=== PATIENT | male | born 1960 | race Caucasian/White ===

== ENCOUNTER 2016-09-08 09:53 | Observation (INO) | payer OTHER ==
[~2016-09-08] VITALS: Ht 172.7 cm; Wt 82.3 kg
[~2016-09-08 09:53] MED LIST: ASPI81TA28 PO; ATOR-24 PO; CLOP1TAB15 PO; NTRGSL/4 UT
--- NOTE | 2016-09-08 10:22 | EMERGENCY ROOM VISIT NOTE ---
History Report prepared by Rod: Jluis Ramey Under the Supervision of: Dr. Marco Yadav M.D. First contact with patient: 10:02 Chief Complaint: CHEST PAIN Stated Complaint: CHEST PAINS, REFERED BY DOCTOR History of Present Illness The patient is a 56 year old male who presents to the Emergency Room with complaints of worsening chest pain that started 24 hours ago. He was sent here by Dr. Irlanda Payton. The patient had an LAD stent placed in November 2015, and since then, he has been getting periodic chest pain, but the pain has been worsening. The patient has been getting waves of dizziness, lightheadedness, and a bit of heart palpitations. Last night, the patient says he started getting chest pains that radiated into his left arm. The patient took Nitro last night, and that helped. He took his daily baby Aspirin this morning. Currently, he feels okay, but still has a bit of a "tooth ache" pain under his right arm, which he rates as a 3 out of 10 in severity. The patient denies any loss of consciousness, shortness of breath, fevers, headaches, or swelling to his legs. He is a non-smoker. His father of a massive heart attack. Source of History: patient, spouse/significant other Onset: 24 hours ago Position: chest Timing: worsening Modifying Factors (Relieving): other (Aspirin, Nitro) Associated Symptoms: No LOC, No SOB, No fevers, No headache Note: Associated symptoms: Waves of dizziness, lightheadedness, bit of heart palpitations. Pain radiates into left arm. Currently having a "tooth ache" pain under right arm. Review of Systems See HPI for pertinent positives & negatives. A total of 10 systems reviewed and were otherwise negative. Past Medical & Surgical Medical Problems: (1) Chest pain (2) Coronary artery disease Surgical Problems: (1) History of placement of stent in LAD coronary artery Family History Diabetes mellitus FHx: heart disease Social History Smoking Status: Never Smoker Alcohol Use: occasionally Marital Status: Housing Status: lives with family Occupation Status: employed Current/Historical Medications Scheduled Aspirin (Aspirin Ec), 81 MG PO DAILY Atorvastatin (Lipitor), 40 MG PO DAILY Clopidogrel (Plavix), 75 MG PO DAILY Coenzyme Q10 (Ubidecarenone) (Co Q-10), 100 MG PO QPM Isosorbide Mononitrate (Isosorbide Mononitrate ER), 30 MG PO QPM Nitroglycerin (Nitrostat), 0.4 MG UT PRN Pantoprazole (Protonix), 40 MG PO DAILY Allergies Coded Allergies: No Known Allergies (Unverified , 09/08/16) Physical Exam Vital Signs Date Time Temp Pulse Resp B/P Pulse Ox O2 Delivery O2 Flow Rate FiO2 09/08/16 12:12 61 16 132/77 97 Room Air 09/08/16 11:04 75 09/08/16 11:04 63 16 126/72 98 Room Air 09/08/16 10:06 37.0 80 18 142/84 96 Room Air Physical Exam GENERAL: Patient is well appearing and in no acute distress. HEENT: No acute trauma, normocephalic atraumatic, mucous membranes moist, no nasal congestion, no scleral icterus. NECK: No stridor, no adenopathy, no meningismus, trachea is midline. LUNGS: No dyspnea. Clear to auscultation and equal bilaterally. No wheeze, no rhonchi. HEART: Regular rate and rhythm. No murmurs, rubs, gallops appreciated. ABDOMEN: Soft, nontender, bowel sounds positive, no masses appreciated, no peritonitis. BACK: No midline tenderness, no CVA tenderness EXTREMITIES: Normal motion all extremities, no cyanosis, no edema. NEUROLOGIC: Alert and oriented, no acute motor or sensory deficits, no focal weakness, cranial nerves grossly intact. SKIN: No rash, no jaundice, no diaphoresis. Medical Decision & Procedures ER Provider Diagnostic Interpretation: X ray results are stated below per my interpretation and the radiologist's interpretation. CHEST ONE VIEW PORTABLE CLINICAL HISTORY: Chest pain. COMPARISON STUDY: No previous studies for comparison. FINDINGS: Lung volumes are normal. Lungs are clear. There is no pneumothorax or pleural effusion. There is no evidence of pulmonary edema. Cardiac size is normal. Mediastinal contours are normal. IMPRESSION: No acute cardiopulmonary findings. Electronically signed by: Pancho Freeman M.D. 09/08/2016 10:37 AM Dictated Date/Time: 09/08/2016 10:37 AM Laboratory Results 09/08/16 11:00 Red Blood Count 4.82, Mean Corpuscular Volume 89.6, Mean Corpuscular Hemoglobin 31.7, Mean Corpuscular Hemoglobin Concent 35.4, Mean Platelet Volume 11.0, Neutrophils (%) (Auto) 72.2, Lymphocytes (%) (Auto) 17.5, Monocytes (%) (Auto) 8.9, Eosinophils (%) (Auto) 1.0, Basophils (%) (Auto) 0.3, Neutrophils # (Auto) 5.27, Lymphocytes # (Auto) 1.28, Monocytes # (Auto) 0.65, Eosinophils # (Auto) 0.07, Basophils # (Auto) 0.02 09/08/16 11:00 Test 09/08/16 11:00 White Blood Count 7.30 K/uL (4.8-10.8) Red Blood Count 4.82 M/uL (4.7-6.1) Hemoglobin 15.3 g/dL (14.0-18.0) Hematocrit 43.2 % (42-52) Mean Corpuscular Volume 89.6 fL (80-100) Mean Corpuscular Hemoglobin 31.7 pg (25-34) Mean Corpuscular Hemoglobin Concent 35.4 g/dl (32-36) Platelet Count 211 K/uL (130-400) Mean Platelet Volume 11.0 fL (7.4-10.4) Neutrophils (%) (Auto) 72.2 % Lymphocytes (%) (Auto) 17.5 % Monocytes (%) (Auto) 8.9 % Eosinophils (%) (Auto) 1.0 % Basophils (%) (Auto) 0.3 % Neutrophils # (Auto) 5.27 K/uL (1.4-6.5) Lymphocytes # (Auto) 1.28 K/uL (1.2-3.4) Monocytes # (Auto) 0.65 K/uL (0.11-0.59) Eosinophils # (Auto) 0.07 K/uL (0-0.5) Basophils # (Auto) 0.02 K/uL (0-0.2) RDW Standard Deviation 38.9 fL (36.4-46.3) RDW Coefficient of Variation 12.1 % (11.5-14.5) Immature Granulocyte % (Auto) 0.1 % Immature Granulocyte # (Auto) 0.01 K/uL (0.00-0.02) Anion Gap 10.0 mmol/L (3-11) Est Creatinine Clear Calc Drug Dose 92.8 ml/min Estimated GFR () 107.3 Estimated GFR (Non- 92.6 BUN/Creatinine Ratio 20.4 (10-20) Calcium Level 9.0 mg/dl (8.5-10.1) Total Creatine Kinase 85 U/L (39-308) Creatine Kinase MB 1.2 ng/ml (0.5-3.6) Creatine Kinase MB Ratio 1.4 (0-3.0) Laboratory results as reviewed by me. ECG Indication: chest pain Rate (beats per minute): 62 Rhythm: normal sinus Findings: no acute ischemic change, no ectopy ED Course 1012: The patient was evaluated in room B7. A complete history and physical exam was performed. 1145: I reevaluated the patient and he is feeling okay. 1200: I discussed the patient with Dr. Mynor Payton scale and skip car operator - he will evaluate the patient for further treatment. 1202: I reevaluated the patient and he is resting comfortably. The patient verbally expressed understanding and agreement of the treatment plan. The patient will be evaluated for further treatment. Medical Decision Differential: Cardiac Ischemia (STEMI, NSTEMI, Unstable Angina, etc), Aortic Dissection, Arrhythmia, Pulmonary Embolism, Pneumonia, Pneumothorax, MSK, Infectious, Pericarditis/Myocarditis, Esophageal Rupture, Gastrointestinal, amongst other pathologies entertained. 56 yr old male arrives with complaint of chest pain over the last 24 hours on and off that relieves with SLNTG. Sent over by cards to be brought in for further evaluation. Initial EKG, trop and cxr clear. He is in no disress and looks well. He will be brought in to hospitalist service for further work-up and evaluation. 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 Consults Time Called: 1158 Consulting Physician: Dr. Mynor Payton scale and skip car operator Returned Call: 1200 I discussed the patient with Dr. Mynor Payton scale and skip car operator - he will evaluate the patient for further treatment. Impression Primary Impression: Left sided chest pain Additional Impression: Unstable angina Scribe Attestation The scribe's documentation has been prepared under my direction and personally reviewed by me in its entirety. I confirm that the note above accurately reflects all work, treatment, procedures, and medical decision making performed by me. Departure Information Dispostion Being Evaluated By Hospitalist Referrals Dilip Fournier DO (PCP) Patient Instructions [facility] Problem Qualifiers
[2016-09-08] MEDS ORDERED: IMDSR30 PO (10:39)
[2016-09-08] MEDS ORDERED: PANT40TA PO (10:39)
[2016-09-08] MEDS ORDERED: COEN100C3 PO (10:39)
--- NOTE | 2016-09-08 10:39 | DIAGNOSTIC IMAGING REPORT ---
CHEST ONE VIEW PORTABLE CLINICAL HISTORY: Chest pain. COMPARISON STUDY: No previous studies for comparison. FINDINGS: Lung volumes are normal. Lungs are clear. There is no pneumothorax or pleural effusion. There is no evidence of pulmonary edema. Cardiac size is normal. Mediastinal contours are normal. IMPRESSION: No acute cardiopulmonary findings. Electronically signed by: Pancho Freeman M.D. 09/08/2016 10:37 AM Dictated Date/Time: 09/08/2016 10:37 AM
[2016-09-08 11:34] LABS: BASO % 0.3 %; BASO ABS # 0.02 K/uL (0-0.2); COMPLETE YES; HEMATOCRIT 43.2 % (42-52); IG% 0.1 %; LYMPH % 17.5 %; LYMPH ABS # 1.28 K/uL (1.2-3.4); MEAN CELL VOLUME 89.6 fL (80-100); MEAN CORPUSCULAR HEMOGLOBIN 31.7 pg (25-34); MEAN CORPUSCULAR HGB CONC 35.4 g/dl (32-36); MONO % 8.9 %; NEUT % 72.2 %; PLATELET COUNT 211 K/uL (130-400); RED BLOOD COUNT 4.82 M/uL (4.7-6.1)
[2016-09-08 11:53] LABS: BLOOD UREA NITROGEN 19 mg/dl (7-18); BUN/CREATININE RATIO 20.4 (10-20); CARBON DIOXIDE 25 mmol/L (21-32); CHLORIDE 108 mmol/L (98-107); CREATININE 0.91 mg/dl (0.60-1.40); GLUCOSE 97 mg/dl (70-99); POTASSIUM 3.9 mmol/L (3.5-5.1); SODIUM 143 mmol/L (136-145)
[2016-09-08 11:57] LABS: CKMB/CK RATIO 1.4 (0-3.0)
[2016-09-08] MEDS ORDERED: MoRPHine SULFATE 2 MG/ML CARP IV PRN (12:30)
[2016-09-08] MEDS ORDERED: ONDANSETRON INJ 2 MG/ML 2 ML VIAL IV PRN (12:30)
[2016-09-08] MEDS ORDERED: NITROGLYCERIN 0.4 MG SL PER TAB CHARGE SL PRN (12:30)
[2016-09-08] MEDS ORDERED: ACETAMINOPHEN 325 MG TAB PO PRN (12:30)
[2016-09-08] MEDS ORDERED: IV FLUIDS COMPLETED PRN (13:45)
--- NOTE | 2016-09-08 14:02 | History and Physical ---
History & Physical Date & Time of Service: Sep 08, 2016 at 14:03 . Chief Complaint: chest pain . Primary Care Physician: History of Present Illness Source: patient, clinic records, hospital records 56 YO male followed by Dr. Chow for primary care and Dr. Fournier for Cardiology. History of CAD. Cath 11/30/15 demonstrated LAD lesion. 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 Intolerant of beta eugenio (weakness, diplopia). Has been managed with aspirin, clopidogrel, isosorbide, statin. Has had occasional mild chest pressure since PCI, usually nonexertional, relived by acetaminophen. 5 days prior to admission he had midsternal chest pressure radiating to his left arm while watching TV. No associated SOB, nausea, vomiting, diaphoresis. Took 2 doses of SL NTG with relief. Had similar episode last evening, again while watching TV, again relieved by NTG x 2. Seen in Cardiology clinic today. Referred to hospital for further evaluation. Chest pain-free in ED. . Past Medical/Surgical History Chronic Medical Problems: (1) Coronary artery disease Status: Chronic (2) Dyslipidemia Status: Chronic Surgical Problems: (1) Status post cardiac catheterization Status: Chronic (2) Status post coronary artery stent placement Permanent Comment[place] [facility] [place] Status: Chronic . Family History Diabetes mellitus FHx: heart disease Social History Smoking Status: Never Smoker Alcohol Use: occasionally Marital Status: Occupational Status: employed Allergies Coded Allergies: No Known Allergies (Unverified , 09/08/16) Home Medications Scheduled Aspirin (Aspirin Ec), 81 MG PO DAILY Atorvastatin (Lipitor), 40 MG PO DAILY Clopidogrel (Plavix), 75 MG PO DAILY Coenzyme Q10 (Ubidecarenone) (Co Q-10), 100 MG PO QPM Isosorbide Mononitrate (Isosorbide Mononitrate ER), 30 MG PO QPM Nitroglycerin (Nitrostat), 0.4 MG UT PRN Pantoprazole (Protonix), 40 MG PO DAILY Review of Systems Constitutional: + weight loss (intentional), No chills, No fever Eyes: + diplopia, No eye pain, No worsening of vision ENT: No dental problems, No hearing loss, No nasal symptoms Respiratory: No cough, No shortness of breath Cardiovascular: + problem reported (as noted in HPI) Abdomen: + GI bleeding, No diarrhea, No nausea, No pain, No vomiting Musculoskeletal: No joint pain, No muscle pain Genitourinary - Male: No dysuria, No hematuria Neurologic: + problem reported (no headaches) Endocrine: No excessive thirst, No excessive urination Hematologic / Lymphatic: + abnormal bleeding/bruising (bruises easily) Integumentary: No new/changing skin lesions, No rash Physical Exam Vital Signs Date Time Temp Pulse Resp B/P Pulse Ox O2 Delivery O2 Flow Rate FiO2 09/08/16 13:19 72 09/08/16 12:12 61 16 132/77 97 Room Air 09/08/16 11:04 75 09/08/16 11:04 63 16 126/72 98 Room Air 09/08/16 10:06 37.0 80 18 142/84 96 Room Air General Appearance: WD/WN, no apparent distress Head: normocephalic, atraumatic Eyes: normal inspection, PERRL, EOMI, sclerae normal ENT: normal ENT inspection, hearing grossly normal, pharynx normal Neck: supple, no adenopathy, thyroid normal, no JVD, trachea midline Respiratory/Chest: lungs clear, no respiratory distress, no accessory muscle use Cardiovascular: regular rate, rhythm, no edema, no gallop, no JVD, no murmur, normal peripheral pulses Abdomen/GI: normal bowel sounds, non tender, soft, no organomegaly Extremities/Musculoskelatal: normal inspection, no calf tenderness, normal capillary refill, no pedal edema 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, no motor/sensory deficits, alert, normal mood/affect, oriented x 3 Skin: normal color, warm/dry, no rash Lymphatic: no adenopathy Diagnostics Laboratory Results Results Past 24 Hours Test 09/08/16 11:00 Range/Units White Blood Count 7.30 4.8-10.8 K/uL Red Blood Count 4.82 4.7-6.1 M/uL Hemoglobin 15.3 14.0-18.0 g/dL Hematocrit 43.2 42-52 % Mean Corpuscular Volume 89.6 80-100 fL Mean Corpuscular Hemoglobin 31.7 25-34 pg Mean Corpuscular Hemoglobin Concent 35.4 32-36 g/dl Platelet Count 211 130-400 K/uL Mean Platelet Volume 11.0 7.4-10.4 fL Neutrophils (%) (Auto) 72.2 % Lymphocytes (%) (Auto) 17.5 % Monocytes (%) (Auto) 8.9 % Eosinophils (%) (Auto) 1.0 % Basophils (%) (Auto) 0.3 % Neutrophils # (Auto) 5.27 1.4-6.5 K/uL Lymphocytes # (Auto) 1.28 1.2-3.4 K/uL Monocytes # (Auto) 0.65 0.11-0.59 K/uL Eosinophils # (Auto) 0.07 0-0.5 K/uL Basophils # (Auto) 0.02 0-0.2 K/uL RDW Standard Deviation 38.9 36.4-46.3 fL RDW Coefficient of Variation 12.1 11.5-14.5 % Immature Granulocyte % (Auto) 0.1 % Immature Granulocyte # (Auto) 0.01 0.00-0.02 K/uL Sodium Level 143 136-145 mmol/L Potassium Level 3.9 3.5-5.1 mmol/L Chloride Level 108 98-107 mmol/L Carbon Dioxide Level 25 21-32 mmol/L Anion Gap 10.0 3-11 mmol/L Blood Urea Nitrogen 19 7-18 mg/dl Creatinine 0.91 0.60-1.40 mg/dl Est Creatinine Clear Calc Drug Dose 92.8 ml/min Estimated GFR () 107.3 Estimated GFR (Non- 92.6 BUN/Creatinine Ratio 20.4 10-20 Random Glucose 97 70-99 mg/dl Calcium Level 9.0 8.5-10.1 mg/dl Total Creatine Kinase 85 39-308 U/L Creatine Kinase MB 1.2 0.5-3.6 ng/ml Creatine Kinase MB Ratio 1.4 0-3.0 Troponin I < 0.015 0-0.045 ng/ml Diagnostic Radiology CHEST ONE VIEW PORTABLE FINDINGS: Lung volumes are normal. Lungs are clear. There is no pneumothorax or pleural effusion. There is no evidence of pulmonary edema. Cardiac size is normal. Mediastinal contours are normal. IMPRESSION: No acute cardiopulmonary findings. Electronically signed by: Pancho Freeman M.D. 09/08/2016 10:37 AM . EKG EKG performed at 10:01 reviewed and demonstrated NSR at 62 / minute, T-wave flattening aVF. . Impression Assessment and Plan CHEST PAIN / CAD History of coronary artery disease, s/p PCI LAD November 2015. 2 recent episodes of chest pain at rest, relieved by NTG. Check serial cardiac markers and EKG's. Continue aspirin, clopidogrel, isosorbide, atorvastatin. Consult Cardiology. DYSLIPIDEMIA Check lipid profile. Continue atorvastatin. VTE PROPHYLAXIS SQ enoxaparin. Ambulate. DISPOSITION Observation status on Telemetry Unit. Expected discharge to home. Medical follow-up with Dr. Tong. Cardiology follow-up with Dr. Fournier. . VTE Prophylaxis VTE Risk Assessment Done? Y/N: Yes Risk Level: Moderate Given or contraindicated: Enoxaparin (Lovenox)SQ
[2016-09-08 14:27] VITALS: BP 132/73; PULSE 63; TEMP 37; O2SAT 99; Ht 172.7 cm; Wt 82.3 kg
[2016-09-08 15:50] VITALS: BP 136/79; PULSE 88; TEMP 36.6; O2SAT 94
--- NOTE | 2016-09-08 16:59 | CARDIOLOGY CONSULTATION ---
DATE OF CONSULTATION: 09/08/2016 [facility] REASON FOR CONSULTATION: Chest pain. HISTORY OF PRESENT ILLNESS: The patient is a 56-year-old male patient whom I know from my clinic. In December of 2015, he had a drug-eluting stent placed in his LAD. He has done well and had an exercise stress test in December of 2015 that was negative for ischemia. Recently he has been experiencing some atypical chest pain. It is atypical and that it does not occur with activity. He describes it as a dull ache that radiates into his left arm. He has taken sublingual nitroglycerin for it and it has provided some but not complete relief. He describes an episode this past Sunday where he developed the discomfort that lasted for approximately 6 hours before it resolved. It was not associated to shortness of breath. 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 He also has been having some lightheadedness and dizziness, which is not necessarily associated to the chest discomfort. He has not had syncope. He denies heart palpitations, tachycardia. ALLERGIES: No known medical allergies. PAST MEDICAL HISTORY: As described above in November of 2015, he had a drug-eluting stent placed in the LAD. He has a history of dyslipidemia. No prior history of diabetes. He has an intolerance to beta blockers due to lightheadedness. SOCIAL HISTORY: He is a lifelong nonsmoker. He is and lives with his . FAMILY MEDICAL HISTORY: Significant for a brother with early coronary artery disease. REVIEW OF SYSTEMS: A 10-point review of systems is negative except for the history of chief complaint. PHYSICAL EXAMINATION: GENERAL: He is alert and oriented. VITAL SIGNS: Blood pressure is 130/70, pulse is regular at 70; he is afebrile. HEENT: He is normocephalic. Pupils are equal and reactive to light. Extraocular muscles are intact bilaterally. NECK: The neck veins are flat. Carotids have good upstrokes bilaterally without bruits. Thyroid is nonpalpable. RESPIRATORY: Breath sounds are equal bilaterally and clear to auscultation. CARDIOVASCULAR: Heart has a regular rhythm. Normal S1, S2. No S3, S4. No cardiac rubs or murmurs. GASTROINTESTINAL: Abdomen is soft, nontender without organomegaly. EXTREMITIES: Free of edema, digit clubbing, or cyanosis. NEUROLOGIC: Grossly intact. SKIN: Warm to touch. LYMPH NODES: Negative to palpation. LABORATORY AND IMAGING DATA: Cardiac markers are negative. Hemoglobin is 15.3. Creatinine 0.9. EKG shows a normal sinus rhythm and is within normal limits. IMPRESSION: 1. Atypical chest pain. 2. Known coronary artery disease with previous drug-eluting stent in the left anterior descending artery. 3. Dizziness of undetermined etiology. RECOMMENDATIONS: The patient will be placed on the telemetry unit. He will have a resting echocardiogram and will perform orthostatic blood pressure checks. Further evaluation and treatment following the above.
[2016-09-08 18:05] LABS: INR 1.1 (0.9-1.1); PROTHROMBIN TIME (PATIENT) 11.4 SECONDS (9.0-12.0)
[2016-09-08 19:21] VITALS: BP 151/74; PULSE 68; TEMP 36.4; O2SAT 98
[2016-09-08 20:00] VITALS: O2SAT 98
[2016-09-08] MEDS ORDERED: ISOSORBIDE MONONITRATE 30 MG TABCR PO SCH (21:00)
[2016-09-08] MEDS ORDERED: ENOXAPARIN 40 MG/0.4 ML SYR SC SCH (21:00)
[2016-09-08 22:57] VITALS: BP 129/68; PULSE 74; TEMP 36.7; O2SAT 96
[2016-09-08 23:59] VITALS: O2SAT 98
[2016-09-09] VITALS (7 sets, daily range): BP systolic 118–126; BP diastolic 65–76; PULSE 74–88; TEMP 36.4–36.6; O2SAT 95–98
[2016-09-09] MEDS ORDERED: ATORVASTATIN 40 MG TAB PO SCH (09:00)
[2016-09-09] MEDS ORDERED: PANTOprazole SOD 40 MG TAB PO SCH (09:00)
[2016-09-09] MEDS ORDERED: CLOPIDOGREL BISULFATE 75 MG TAB PO SCH (09:00)
[2016-09-09] MEDS ORDERED: ASPIRIN 81 MG ECTAB PO SCH (09:00)
--- NOTE | 2016-09-09 11:11 | ECHOCARDIOGRAM REPORT ---
*NOTICE TO RECEIVING [employer] This information is strictly Confidential and protected under [place] law. [place] law prohibits you from making any further disclosure of this information unless further disclosure is expressly permitted by the written consent of the person to whom it pertains or is authorized by law. A general authorization for the release of medical or other information is not sufficient for this purpose. Hospital accepts no responsibility if the information is made available to any other person, INCLUDING THE PATIENT. Interpretation Summary * Name: VALENTINO GASTELUM Study Date: 09/09/2016 07:38 AM BP: 118/65 mmHg * Patient Location: C.2T\S\S238\S\1 HR: 74 * : 1960 (M/d/yyyy) Gender: Male Height: 68 in * Age: 56 yrs Ethnicity: CA Weight: 182 lb * Ordering Physician: Patricio Daniel DO * Referring Physician: Daron Lowe * Performed By: Naida Sandhu * * Reason For Study: CHEST PAIN * BSA: 2.0 m2 * -- Conclusions -- * The left ventricular wall motion is normal. * Ejection Fraction = 60-65%. * Mild aortic regurgitation. Procedure Details * A complete two-dimensional transthoracic echocardiogram was performed (2D, M-mode, Doppler and color flow Doppler). Left Ventricle * The left ventricle is normal in size. * There is normal left ventricular wall thickness. * Left ventricular systolic function is normal. * Ejection Fraction = 60-65%. * The left ventricular wall motion is normal. Right Ventricle * The right ventricle is normal size. * The right ventricular systolic function is normal as assessed by tricuspid annular plane systolic excursion (TAPSE) (normal >1.5 cm). Atria * The left atrial size is normal. * Right atrial size is normal. * There is no evidence of atrial septal defect, but resolution does not allow assessment for a patent foramen ovale. Mitral Valve * The mitral valve is normal. * There is no mitral valve stenosis. * Significant mitral regurgitation is absent. Tricuspid Valve * The tricuspid valve is normal. * There is no tricuspid stenosis. * Significant tricuspid regurgitation is absent. Aortic Valve * The aortic valve is trileaflet. * Aortic stenosis is absent. * Mild aortic regurgitation. Pulmonic Valve * The pulmonary valve is not well seen, but the Doppler examination is normal without significant regurgitation or stenosis. Great Vessels * The aortic root and proximal ascending aorta are normal sized. Pericardium/Pleural * There is no pericardial effusion. Great Vessels * Normal inferior vena cava diameter and respiratory variation suggests normal central venous pressure. Left Ventricular Diastolic Function * Grade I diastolic dysfunction, (abnormal relaxation pattern). MMode 2D Measurements and Calculations IVSd 1.1 cm IVSs 1.7 cm LVIDd 4.2 cm LVIDs 2.5 cm LVPWd 0.67 cm LVPWs 1.4 cm IVS/LVPW 1.6 FS 40.3 % EDV(Teich) 78.7 ml ESV(Teich) 22.5 ml EF(Teich) 71.4 % EDV(cubed) 74.3 ml ESV(cubed) 15.8 ml EF(cubed) 78.7 % % IVS thick 53.8 % % LVPW thick 105.7 % LV mass(C)d 116.8 grams LV mass(C)dI 59.5 grams/m\S\2 LV mass(C)s 133.0 grams LV mass(C)sI 67.7 grams/m\S\2 SV(Teich) 56.2 ml SI(Teich) 28.6 ml/m\S\2 SV(cubed) 58.5 ml SI(cubed) 29.8 ml/m\S\2 ACS 1.2 cm LA dimension 3.9 cm asc Aorta Diam 3.3 cm LVOT diam 2.1 cm LVOT area 3.5 cm\S\2 LVAd ap4 36.5 cm\S\2 LVLd ap4 8.9 cm EDV(MOD-sp4) 120.9 ml EDV(sp4-el) 127.0 ml LVAs ap4 17.3 cm\S\2 LVLs ap4 7.0 cm ESV(MOD-sp4) 36.0 ml ESV(sp4-el) 36.3 ml EF(MOD-sp4) 70.2 % EF(sp4-el) 71.4 % LVAd ap2 34.7 cm\S\2 LVLd ap2 8.7 cm EDV(MOD-sp2) 107.8 ml EDV(sp2-el) 118.2 ml LVAs ap2 16.7 cm\S\2 LVLs ap2 6.8 cm ESV(MOD-sp2) 31.7 ml ESV(sp2-el) 34.5 ml EF(MOD-sp2) 70.6 % EF(sp2-el) 70.8 % LVLd %diff -3.06 % EDV(MOD-bp) 114.5 ml LVLs %diff -1.78 % ESV(MOD-bp) 33.9 ml EF(MOD-bp) 70.4 % SV(MOD-sp4) 84.9 ml SI(MOD-sp4) 43.3 ml/m\S\2 SV(MOD-sp2) 76.2 ml SI(MOD-sp2) 38.8 ml/m\S\2 SV(MOD-bp) 80.6 ml SI(MOD-bp) 41.1 ml/m\S\2 SV(sp4-el) 90.6 ml SI(sp4-el) 46.2 ml/m\S\2 SV(sp2-el) 83.7 ml SI(sp2-el) 42.6 ml/m\S\2 Doppler Measurements and Calculations MV E max pablito 66.8 cm/sec MV A max pablito 59.6 cm/sec MV E/A 1.1 MV dec time 0.20 sec Ao V2 max 148.3 cm/sec Ao max PG 8.8 mmHg Ao max PG (full) 4.4 mmHg FROY(V,A) 2.4 cm\S\2 FROY(V,D) 2.4 cm\S\2 AI max pablito 384.4 cm/sec AI max PG 59.1 mmHg AI dec slope 287.2 cm/sec\S\2 AI P1/2t 392.0 msec LV V1 max PG 4.4 mmHg LV V1 mean PG 2.0 mmHg LV V1 max 104.6 cm/sec LV V1 mean 63.2 cm/sec LV V1 VTI 27.2 cm SV(LVOT) 93.9 ml SI(LVOT) 47.8 ml/m\S\2 PA V2 max 69.1 cm/sec PA max PG 1.9 mmHg PI end-d pablito 89.8 cm/sec TR max pablito 230.4 cm/sec
--- NOTE | 2016-09-09 11:13 | Cardiology Follow-Up ---
Subjective General Date of Service: Sep 09, 2016. Chief Complaint: follow up chest pain Pt evaluation today including: conversation w/ patient, conversation w/ family , physical exam History of Present Illness The patient is a 56 year old male seen in follow up. Patient seen before / during / post exercise stress echocardiogram. Pt felt well overnight. Repeat EKG and Dalton negative. Allergies Coded Allergies: No Known Allergies (Unverified , 09/08/16) Social History Smoking Status: Never Smoker Hx Tobacco Use In Past Year?: No Hx Alcohol Use - Type And Amou: Yes (3-4 beers/week ) Hx Substance Use - Type And Am: No Physical Exam Vital Signs Last Vital Signs Documentation Date Time Temp Pulse Resp B/P Pulse Ox O2 Delivery O2 Flow Rate FiO2 09/09/16 09:54 36.4 77 20 98 Room Air 09/09/16 07:57 120/73 Physical Exam Constitutional: Level of Distress: NAD ENMT: normal ENT inspection Neck: supple Lungs: Auscultation: no wheezing, no rales/crackles, no rhonchi Cardiovascular: Heart Auscultation: RRR, no murmurs, no rubs Musculoskeletal: normal Extremities: no cyanosis, no edema Assessment and Plan Assessment and Plan Resting echo: normal wall motion, normal LVEF, mild AR. Stress study: normal EKG and echocardiographic response, negative for ischemia, achieved above average workload, 9 minutes on Tiago protocol Stable exercise tolerance compared to prior study in 12/2015. Impression: 1. Atypical chest pain, negative stress echo, symptoms on reproduced with exercise. 2. H/o CAD, complex LAD/ diagonal PCI rotational atherectomy 11/2015 3. Dyslipidemia Plan: Stable for DC to home. Continue same medications as prior to arrival including ASA, Plavix, Imdur, atorvastatin. Has history of beta eugenio intolerance. BP is controlled, with no DM, no CHF, normal LVEF, no indication for ACEI/ ARB. Outpt follow up with Dr Fournier in 2-4 weeks. Laboratory Results Last 24 Hours Test 09/08/16 17:35 09/08/16 23:20 09/09/16 06:04 Prothrombin Time 11.4 SECONDS Prothromb Time International Ratio 1.1 Activated Partial Thromboplast Time 26.3 SECONDS Partial Thromboplastin Ratio 1.0 Troponin I < 0.015 ng/ml < 0.015 ng/ml Triglycerides Level 129 mg/dl Cholesterol Level 102 mg/dl HDL Cholesterol 34 mg/dl LDL Cholesterol, Calculated 42 mg/dl VLDL Cholesterol, Calculated 26 mg/dl Cholesterol/HDL Ratio 3.0
--- NOTE | 2016-09-09 11:25 | EXERCISE STRESS ECHO ---
*NOTICE TO RECEIVING CONSTITUTION PARTY AGENCY This information is strictly Confidential and protected under [place] law. [place] law prohibits you from making any further disclosure of this information unless further disclosure is expressly permitted by the written consent of the person to whom it pertains or is authorized by law. A general authorization for the release of medical or other information is not sufficient for this purpose. Hospital accepts no responsibility if the information is made available to any other person, INCLUDING THE PATIENT. Interpretation Summary * Name: VALENTINO GASTELUM Study Date: 09/09/2016 10:17 AM BP: 134/82 mmHg * Patient Location: 2\S\S238\S\1 HR: 69 * : 1960 (M/d/yyyy) Gender: Male Height: 68 in * Age: 56 yrs Ethnicity: [place] Weight: 181 lb * Ordering Physician: Jersey Vuong * Referring Physician: Daron Lowe * Performed By: Lester Weheler RCS * * Reason For Study: Chest Pain * BSA: 2.0 m2 * The study was technically adequate. * -- Conclusions -- * STRESS STUDY: * Normal exercise stress echocardiogram. * No echocardiographic or EKG evidence of myocardial ischemia having achieved heart rate adequate for diagnostic purposes. * Patient's exercise capacity was above average. * No symptoms suggestive of angina were induced. * Refer to separate report for details of resting study. * Mild aortic regurgitation was noted on the resting study. Procedure Details * ECHOEX, CPT #43629 Left Ventricle * The left ventricle is normal in size. There is normal left ventricular wall thickness. Left ventricular systolic function is normal at rest. The LV Ejection Fraction = 60-65% at rest (normal). * Resting wall motion: Normal. Stress wall motion: Appropriate increase in Left ventricular systolic function and decrease in cavity size. No stress induced segmental wall motion abnormalities. Stress Parameters * Normal baseline electrocardiogram. * The stress EKG was negative for ischemia. Occasional PVCs were noted with exercise, with no sustained arrhythmias. * The stress portion of this study was personally supervised by the undersigned interpreting physician. * Rest heart rate was '69' BPM. * Rest blood pressure was '134/82' * Maximum heart rate achieved was 164 bpm. * Maximum heart rate was 101 % of maximum age-predicted heart rate. * Maximum blood pressure was '185/76' * Total exercise time was '9:00' * Maximum exercise MET level achieved was '10.1' METS * Maximum treadmill speed was '3.4' miles per hour. * Maximum treadmill elevation was '14'% grade. * Exercise was terminated due to 'physicians decision after achieving target heart rate' * Normal blood pressure response to exercise.
--- NOTE | 2016-09-09 12:00 | Progress Note ---
Internal Med Progress Note Date of Service: Sep 09, 2016. Provider Documentation: SUBJECTIVE: Patient is seen and examined at bedside. States chest pain is resolved. Denies SOB, palpitations, fever, chills, dizziness. Offer no other complaints. Family at bedside. OBJECTIVE: Vital Signs-as noted below Physical Exam: General Appearance:Moderately built and nourished, no apparent distress Head: normocephalic, Atraumatic Eyes: normal inspection, EOMI, PERRLA Neck: supple, Trachea midline Respiratory/Chest: Normal breath sounds, CTA, No accessory muscle use Cardiovascular: S1, S2, NSR, No murmur Abdomen/GI:Soft, Non tender, Bowel sounds present Extremities/Musculoskelatal:normal inspection, no edema Neurologic/Psych:AAOX3, grossly no focal neurological deficits Skin: normal color, warm Lab data as noted below. ASSESSMENT & PLAN: Atypical Chest Pain: R/O ACS H/o CAD, complex LAD/ diagonal PCI rotational atherectomy on 11/2015 Negative Stress Echo Chest pain free since admission Continue ASA, Plavix, Imdur, atorvastatin Patient has intolerance to beta eugenio Appreciate cardiology help Dyslipidemia Continue atorvastatin. DISPOSITION: Plan to discharge home today Follow up with on Sep 13 at 2:20pm Follow up with in 2-4 weeks PROCEDURES: STRESS STUDY: * Normal exercise stress echocardiogram. * No echocardiographic or EKG evidence of myocardial ischemia having achieved heart rate adequate for diagnostic purposes. * Patient's exercise capacity was above average. * No symptoms suggestive of angina were induced. * Refer to separate report for details of resting study. * Mild aortic regurgitation was noted on the resting study CXR: No acute cardiopulmonary findings Vital Signs: Date Time Temp Pulse Resp B/P Pulse Ox O2 Delivery O2 Flow Rate FiO2 09/09/16 12:02 36.5 88 20 126/76 98 Room Air 09/09/16 12:00 98 Room Air 09/09/16 09:54 36.4 77 20 98 Room Air 09/09/16 08:00 98 Room Air 09/09/16 07:57 36.4 77 20 120/73 97 Room Air 09/09/16 04:00 98 Room Air 09/09/16 03:22 36.6 74 18 118/65 95 Room Air 09/08/16 23:59 98 Room Air 09/08/16 22:57 36.7 74 18 129/68 96 Room Air 09/08/16 20:00 98 Room Air 09/08/16 19:21 36.4 68 18 151/74 98 Room Air 09/08/16 15:50 36.6 88 18 136/79 94 Room Air 09/08/16 15:36 37.0 63 15 132/73 99 09/08/16 14:27 37.0 63 15 132/73 99 Room Air 09/08/16 13:19 72 Lab Results: Results Past 24 Hours Test 09/08/16 17:35 09/08/16 23:20 09/09/16 06:04 Range/Units Prothrombin Time 11.4 9.0-12.0 SECONDS Prothromb Time International Ratio 1.1 0.9-1.1 Activated Partial Thromboplast Time 26.3 21.0-31.0 SECONDS Partial Thromboplastin Ratio 1.0 Troponin I < 0.015 < 0.015 0-0.045 ng/ml Triglycerides Level 129 0-150 mg/dl Cholesterol Level 102 0-200 mg/dl HDL Cholesterol 34 mg/dl LDL Cholesterol, Calculated 42 mg/dl VLDL Cholesterol, Calculated 26 mg/dl Cholesterol/HDL Ratio 3.0
--- NOTE | 2016-09-09 12:05 | Discharge Summary ---
Discharge Summary Admission Date: Sep 08, 2016 at 12:33 Discharge Date: Sep 09, 2016 Discharge Disposition: Home Principal Diagnosis: Atypical Chest Pain Procedures: STRESS STUDY: * Normal exercise stress echocardiogram. * No echocardiographic or EKG evidence of myocardial ischemia having achieved heart rate adequate for diagnostic purposes. * Patient's exercise capacity was above average. * No symptoms suggestive of angina were induced. * Refer to separate report for details of resting study. * Mild aortic regurgitation was noted on the resting study CXR: No acute cardiopulmonary findings Consultations: Cardiology Pending Studies/Follow-Up: Follow up with on Sep 13 at 2:20pm Follow up with in 2-4 weeks Medication Reconciliation Continued Medications: Aspirin (Aspirin Ec) 81 Mg Tab 81 MG PO DAILY Atorvastatin (Lipitor) 40 Mg Tab 40 MG PO DAILY, TAB Clopidogrel (Plavix) 75 Mg Tab 75 MG PO DAILY, TAB Coenzyme Q10 (Ubidecarenone) (Co Q-10) 100 Mg Cap 100 MG PO QPM Isosorbide Mononitrate (Isosorbide Mononitrate ER) 30 Mg Tabcr 30 MG PO QPM Nitroglycerin (Nitrostat) 0.4 Mg Tab 0.4 MG UT PRN, BTL PLACE ONE TABLET UNDER THE TOUNGUE EVERY 5 MINUTES NEEDED FOR CHEST PAIN. TAKE NO MORE THAN 3 TABLETS. IF CHEST PAIN IS NOT RELEIVED BY 3 TABLETS, CALL 911. Pantoprazole (Protonix) 40 Mg Tab 40 MG PO DAILY, #30 TAB Admission Information HPI (per Admitting provider): 56 YO male followed by Dr. Chow for primary care and Dr. Fournier for Cardiology. History of CAD. Cath 11/30/15 demonstrated LAD lesion. PCI with rotablader and ENEIDA performed at [facility] [place] 12/01/15. Intolerant of beta eugenio (weakness, diplopia). Has been managed with aspirin, clopidogrel, isosorbide, statin. Has had occasional mild chest pressure since PCI, usually nonexertional, relived by acetaminophen. 5 days prior to admission he had midsternal chest pressure radiating to his left arm while watching TV. No associated SOB, nausea, vomiting, diaphoresis. Took 2 doses of SL NTG with relief. Had similar episode last evening, again while watching TV, again relieved by NTG x 2. Seen in Cardiology clinic today. Referred to hospital for further evaluation. Chest pain-free in ED. . Physical Exam (per Admitting): General Appearance: WD/WN, no apparent distress Head: normocephalic, atraumatic Eyes: normal inspection, PERRL, EOMI, sclerae normal ENT: normal ENT inspection, hearing grossly normal, pharynx normal Neck: supple, no adenopathy, thyroid normal, no JVD, trachea midline Respiratory/Chest: lungs clear, no respiratory distress, no accessory muscle use Cardiovascular: regular rate, rhythm, no edema, no gallop, no JVD, no murmur , normal peripheral pulses Abdomen/GI: normal bowel sounds, non tender, soft, no organomegaly Extremities/Musculoskelatal: normal inspection, no calf tenderness, normal capillary refill, no pedal edema 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 DISPOSITION: Plan to discharge home today Follow up with on Follow up with on PROCEDURES: STRESS STUDY: * Normal exercise stress echocardiogram. * No echocardiographic or EKG evidence of myocardial ischemia having achieved heart rate adequate for diagnostic purposes. * Patient's exercise capacity was above average. * No symptoms suggestive of angina were induced. * Refer to separate report for details of resting study. * Mild aortic regurgitation was noted on the resting study CXR: No acute cardiopulmonary findings Total time spent on discharge = 35 minutes This includes examination of the patient, discharge planning, medication reconciliation, and communication with other providers. Discharge Instructions Discharge Instructions Admission Reason for Admission: Chest Pain, Coronary Artery Disease Discharge Discharge Diagnosis / Problem: Atypical Chest Pain Discharge Goals Goal(s): Decrease discomfort, Improve function Activity Recommendations Activity Limitations: resume your previous activity Exercise/Sports Limitations: as tolerated . Instructions / Follow-Up Instructions / Follow-Up Follow up with on Sep 13 at 2:20pm Follow up with in 2-4 weeks (Please call for appointment) Current Hospital Diet Patient's current hospital diet: AHA Diet (Heart Healthy) Discharge Diet Recommended Diet: AHA Diet (Heart Healthy) Pending Studies Studies pending at discharge: no Laboratory Results Lipid Panel Test 09/09/16 06:04 Range/Units Triglycerides Level 129 0-150 mg/dl Cholesterol Level 102 0-200 mg/dl HDL Cholesterol 34 mg/dl Cholesterol/HDL Ratio 3.0 LDL Cholesterol, Calculated 42 mg/dl Medical Emergencies . Who to Call and When: Medical Emergencies: If at any time you feel your situation is an emergency, please call 911 immediately. . Non-Emergent Contact Non-Emergency issues call your: Primary Care Provider, Automotive Machinist Apprentice Call Non-Emergent contact if: you have a fever, your pain is not controlled, your pain is worsening, your pain is unusual for you, you have any medication questions . . "Provider Documentation" section prepared by Bryan Linares. VTE Core Measure Inpt VTE Proph given/why not?: Enoxaparin (Lovenox)SQ
== END 2016-09-09 13:36 | disposition home or self-care (01) ==
LOC: ENRESERVTM → ENRESERVDT → C.EDB 09:54 → C.EDINP 12:33 → C.2T 15:49
PROVIDERS: ADMIT Hospitalist; ATTEND Internal Medicine
DX: R07.89 Other chest pain (principal); E78.5 Hyperlipidemia, unspecified; I25.10 Atherosclerotic heart disease of native coronary artery without angina pectoris; Z83.3 Family history of diabetes mellitus; Z82.49 Family history of ischemic heart disease and other diseases of the circulatory system; Z79.82 Long term (current) use of aspirin; Z79.02 Long term (current) use of antithrombotics/antiplatelets; Z79.899 Other long term (current) drug therapy; Z95.5 Presence of coronary angioplasty implant and graft